=== PATIENT | male | born 1995 | race Caucasian/White ===

== ENCOUNTER 2016-10-15 19:06 | Emergency (ER) | payer SELFPAY ==
[~2016-10-15] VITALS: Ht 182.9 cm; Wt 72.7 kg
[2016-10-15] MEDS ORDERED: diphenhydrAMINE 50 MG/ML INJ (BENADRYL) IV ONE (19:20)
[2016-10-15] MEDS ORDERED: ONDANSETRON 2 MG/ML (Z0FRAN) 2 ML VIAL IV ONE ×2 (19:20→22:10)
[2016-10-15] MEDS ORDERED: cloNIDine 0.1 MG (CATAPRES) TAB PO ONE (19:20)
[2016-10-15 20:05] LABS: BASOPHILS % (AUTO) 0 % (0-2); EOSINOPHILS % (AUTO) 0 % (0-4); LYMPHOCYTES # (AUTO) 1.8 X10^3; MEAN CORPUSCULAR HEMOGLOBIN 29.1 PG (26.0-34.0); MEAN CORPUSCULAR HGB CONC 34.6 g/dL (31.0-37.0); MEAN CORPUSCULAR VOLUME 84 FL (80-100); MEAN PLATELET VOLUME 9.6 FL (6.0-9.5); MONOCYTES # (AUTO) 0.6 X10^3; MONOCYTES % (AUTO) 7 % (3-11); NEUTROPHILS # (AUTO) 5.9 X10^3; NEUTROPHILS % (AUTO) 71 % (51-67); PLATELET COUNT 265 10^3uL (150-450); WHITE BLOOD COUNT 8.31 10^3uL (4.0-11.0)
[2016-10-15 20:13] LABS: ALBUMIN 5.2 g/dL (3.4-5.0); ANION GAP 21.4 MEQ/L (3-15); CALCULATED IONIZED CALCIUM 3.9 mg/dL (3.8-4.6); TOTAL PROTEIN 9.1 g/dL (6.4-8.5)
--- NOTE | 2016-10-15 23:28 | NUR ---
Pt is resting at this time, pt has vomited several times, has been sleeping off and on, when he wakes he did c/o some nausea, did give some more Zofran.
--- NOTE | 2016-10-15 23:40 | NUR ---
Pt awake, and vomits again.
--- NOTE | 2016-10-15 23:41 | NUR ---
Dr. Morales notified of pt's continuing emesis
[2016-10-15] MEDS ORDERED: KETOROLAC 30 MG/ML (TORADOL) 1 ML VIAL IV ONE (23:45)
[2016-10-15] MEDS ORDERED: LORazepam 2 MG/ML (ATIVAN) 1 ML VIAL IV ONE (23:45)
[2016-10-15] MEDS ORDERED: DEXAMETHASONE 4 MG/ML (DECADRON) 5ml VIAL IV ONE (23:45)
[2016-10-16] MEDS ORDERED: cloNIDine 0.1 MG (CATAPRES) TAB PO ONE (01:00)
--- NOTE | 2016-10-16 02:43 | NUR ---
pt aroused and IV removed, pt is drowsy, VSS, states he called a friend to come and get him, pt has not had any vomiting recently
--- NOTE | 2016-10-16 04:50 | NUR ---
Pt awake, is axo states that he is unable to find a ride yet, but states "have you ever had anyone come in for withdrawals before?" RN explained, that yes we have taken care of people that were having withdrawals before, pt states "well my friends were telling me that I'm an addict, and I told I wasn't and I was going to show them, so I quit taking the oxy's" "then I was puking my guts out, I had the shakes, and my mabel told me I was going to the hospital" "I don't want to go through this again, I need to find a Methadone Clinic or a Se[facility]one Clinic to help me get off of the oxy's" Pt states that he started taking the narcotics for chronic back pain.
--- NOTE | 2016-10-16 06:30 | NUR ---
Pt awakened, he is axo, taxi has been called for pt. Pt has no complaints of nausea at this time
[2016-10-16 06:49] LABS: BILIRUBIN,URINE Negative (Negative); CLARITY,URINE Clear; COLOR,URINE Yellow; GLUCOSE, URINE (UA) Negative (Negative); LEUKOCYTE ESTERASE ,URINE Negative (Negative); UROBILINOGEN,URINE 0.2 mg/dL (0.2-1.0)
[2016-10-16 06:54] VITALS: BP 109/53
[2016-10-16 07:06] LABS: AMPHETAMINE SCREEN, URINE Negative (Negative); CANNABINOID SCREEN, URINE Positive (Negative); METHAMPHETAMINE SCREEN URINE S NEGATIVE (NEGATIVE); OPIATE SCREEN URINE Negative (Negative); PROPOXYPHENE STAT NEGATIVE (NEGATIVE); URINE CENTRIFUGED VOLUME 12 mL
== END 2016-10-16 06:45 | disposition home or self-care (01) ==
LOC: ED 19:07
DX: R11.2 Nausea with vomiting, unspecified (principal)
CPT/HCPCS: 36415; 80053; 80307; 81003; 81015; 83690; 85025; 96361; 96374; 96375; 96376; 99285; J1100; J1200; J1885; J2060; J2405; J7030; 99283

== ENCOUNTER 2016-12-31 16:28 | Emergency (ER) | payer SELFPAY ==
[~2016-12-31] VITALS: Ht 185.4 cm; Wt 72.7 kg
[~2016-12-31 16:28] MED LIST: CLON0.5T3 PO; DOXY100T41 PO; NO HOME MEDICATIONS; ONDA4TAB8 PO; PRM25T PO; PRX20T PO; TRAM-25 PO; TRM50T PO
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
[2016-12-31] MEDS ORDERED: LIDOCAINE 2% (XYLOCAINE) 20 ML VIAL INJ ONE (17:10)
[2016-12-31] MEDS ORDERED: LIDOCAINE 1% (XYLOCAINE) 10 ML VIAL INJ ONE (17:10)
[2016-12-31 17:38] VITALS: BP 135/79
== END 2016-12-31 17:39 | disposition home or self-care (01) ==
LOC: ED 16:30
DX: S61.210A Laceration without foreign body of right index finger without damage to nail, initial encounter (principal); W26.9XXA Contact with unspecified sharp object(s), initial encounter; Y93.G1 Activity, food preparation and clean up
CPT/HCPCS: 12001; 64450; 99282; 99283